=== PATIENT | female | born 2000 | race Caucasian/White ===

== ENCOUNTER 2021-06-30 00:58 | Emergency (ER) | payer SELFPAY ==
[~2021-06-30] VITALS: Ht 167.6 cm; Wt 103.6 kg
[2021-06-30 01:00] VITALS: BP 164/95
== END 2021-06-30 02:21 | disposition left against medical advice (07) ==
LOC: M ED 00:58
DX: Z53.21 Procedure and treatment not carried out due to patient leaving prior to being seen by health care provider (principal)